=== PATIENT | female | born 1940 | race Caucasian/White ===

== ENCOUNTER → 2017-04-25 | Outpatient (CLI) | payer MEDICARE, OTHER ==
[~2017-04-25] MED LIST: CALTRATE 600600 MG PO; FOSAMAX PO; LEVOTHYROXINE PO; NORCO 325 MG-51 TAB PO; ULTRAM50 MG PO
== END ==
LOC: MC.RAD 13:20
DX: Z12.31 Encounter for screening mammogram for malignant neoplasm of breast (principal); Z90.11 Acquired absence of right breast and nipple

== ENCOUNTER 2017-05-31 09:11 | Inpatient (IN) | payer MEDICARE, OTHER ==
[~2017-05-31] VITALS: Ht 162.6 cm; Wt 99.7 kg
[~2017-05-31 09:11] MED LIST changes: -LEVOTHYROXINE PO; +SYNTHROID0.125 MG/T PO
[2017-10-15] VITALS (12 sets, daily range): BP systolic 101–132; BP diastolic 52–71; PULSE 60–84; TEMP 97.3–98.8
[2017-10-15] MEDS ORDERED: LASIX 20MG TABL20 MG PO (06:23)
[2017-10-16 00:11] VITALS: BP 115/54; PULSE 77; TEMP 98.5
[2017-10-16 04:00] VITALS: BP 118/51; PULSE 56; TEMP 97.7
[2017-10-16 07:14] LABS: HEMATOCRIT 32.5 % (37.0-47.0); HEMOGLOBIN 10.7 g/dl (12.5-16.0)
[2017-10-16 07:43] VITALS: BP 115/56; PULSE 58; TEMP 97.6
[2017-10-16 11:40] VITALS: BP 121/53; PULSE 61; TEMP 97.8
[2017-10-16 15:54] VITALS: BP 122/49; PULSE 64; TEMP 97.9
[2017-10-16 20:04] VITALS: BP 145/57; PULSE 82; TEMP 98.5
[2017-10-17 07:24] VITALS: BP 118/68; PULSE 69; TEMP 97.5
[2017-10-17] MEDS ORDERED: ASPI325T6 PO (07:31)
[2017-10-17] MEDS ORDERED: NORCO 325 MG-7.1 TAB PO (07:31)
[2017-10-17] MEDS ORDERED: ROXICODONE 55 MG/TAB PO (07:32)
[2017-10-17 11:44] VITALS: BP 124/57; PULSE 61; TEMP 97.4
[2017-10-17 16:16] VITALS: BP 138/55; PULSE 65; TEMP 98.2
[2017-10-17 19:49] VITALS: BP 139/58; PULSE 75; TEMP 97.8
[2017-10-18 00:14] VITALS: BP 141/63; PULSE 76; TEMP 97.5
[2017-10-18 04:07] VITALS: BP 147/61; PULSE 66; TEMP 98.3
[2017-10-18 07:45] VITALS: BP 135/63; PULSE 77; TEMP 97.6
[2017-10-18 09:38] VITALS: BP 135/63; PULSE 77; TEMP 97.6
[2017-10-18 11:44] VITALS: BP 126/66; PULSE 67; TEMP 97.6
== END 2017-10-18 12:30 | DRG 470 ==
LOC: JCC 08-12 07:30
PROVIDERS: Orthopaedic Surgery
PROC: 0SRC0J9 Replacement of Right Knee Joint with Synthetic Substitute, Cemented, Open Approach (ICD-10-PCS; principal; 2017-10-15 07:30)
DX: M17.11 Unilateral primary osteoarthritis, right knee (principal); Z85.3 Personal history of malignant neoplasm of breast; Z87.891 Personal history of nicotine dependence
CPT/HCPCS: A4314; A9284; C1713; C1776; J0690; J1100; J1885; J2250; J2405; J2704; J3010; J7120

== ENCOUNTER → 2017-07-11 | Outpatient (CLI) | payer MEDICARE, OTHER ==
[~2017-07-11] MED LIST changes: +LEVOTHYROXINE PO; -SYNTHROID0.125 MG/T PO
[2017-07-11 10:43] LABS: HIV 1/2 Antibodies Non-Reactive; HIV-1p24 Antigen Non-Reactive
== END ==
LOC: COL.LAB 09:08
PROVIDERS: Orthopaedic Surgery
DX: Z01.812 Encounter for preprocedural laboratory examination (principal); M17.11 Unilateral primary osteoarthritis, right knee

== ENCOUNTER 2017-10-08 13:15 | Outpatient (RCR) | payer MEDICARE, OTHER ==
[~2017-10-08 13:15] MED LIST changes: -LEVOTHYROXINE PO; +SYNTHROID0.125 MG/T PO
[2017-10-15] MEDS ORDERED: LASIX 20MG TABL20 MG PO (06:23)
[2017-10-17] MEDS ORDERED: NORCO 325 MG-7.1 TAB PO (07:31)
[2017-10-17] MEDS ORDERED: ASPI325T6 PO (07:31)
[2017-10-17] MEDS ORDERED: ROXICODONE 55 MG/TAB PO (07:32)
== END 2017-11-12 | disposition home or self-care (01) ==
LOC: WSPT
DX: M54.5 Low back pain (principal); M17.11 Unilateral primary osteoarthritis, right knee
CPT/HCPCS: G8978-GP; G8979-GP

== ENCOUNTER → 2017-10-09 | Outpatient (CLI) | payer MEDICARE, OTHER ==
[~2017-10-09] MED LIST changes: +LEVOTHYROXINE PO; -SYNTHROID0.125 MG/T PO
[2017-10-09 15:46] LABS: HIV 1/2 Antibodies Non-Reactive; HIV-1p24 Antigen Non-Reactive
== END ==
LOC: COL.LAB 14:39
PROVIDERS: Orthopaedic Surgery
DX: Z01.812 Encounter for preprocedural laboratory examination (principal); M17.11 Unilateral primary osteoarthritis, right knee

== ENCOUNTER → 2018-05-08 | Outpatient (CLI) | payer MEDICARE, OTHER ==
[~2018-05-08] MED LIST changes: +ASPI325T6 PO; +LASIX 20MG TABL20 MG PO; -LEVOTHYROXINE PO; +NORCO 325 MG-7.1 TAB PO; +ROXICODONE 55 MG/TAB PO; +SYNTHROID0.125 MG/T PO
== END ==
LOC: MC.RAD 11:40
DX: Z12.31 Encounter for screening mammogram for malignant neoplasm of breast (principal); Z90.11 Acquired absence of right breast and nipple

== ENCOUNTER → 2018-12-29 | Outpatient (CLI) | payer MEDICARE, OTHER | LOC: MC.RAD 07:59 | DX: Z12.31 Encounter for screening mammogram for malignant neoplasm of breast (principal); R07.9 Chest pain, unspecified; N64.4 Mastodynia | CPT/HCPCS: G0279 ==

== ENCOUNTER → 2020-01-26 | Outpatient (CLI) | payer MEDICARE, OTHER | LOC: MC.RAD 09:44 | DX: Z12.31 Encounter for screening mammogram for malignant neoplasm of breast (principal); Z90.11 Acquired absence of right breast and nipple; Z85.3 Personal history of malignant neoplasm of breast ==

== ENCOUNTER → 2021-05-30 | Outpatient (CLI) | payer MEDICARE, OTHER | LOC: MC.RAD 10:47 | DX: Z12.31 Encounter for screening mammogram for malignant neoplasm of breast (principal); Z90.11 Acquired absence of right breast and nipple ==

== ENCOUNTER → 2021-11-22 | Outpatient (CLI) | payer MEDICARE, OTHER | LOC: COL.RAD 06:46 | DX: I67.82 Cerebral ischemia (principal); D18.00 Hemangioma unspecified site | CPT/HCPCS: A9575 ==

== ENCOUNTER → 2024-03-16 | Outpatient (CLI) | payer MEDICARE, OTHER | LOC: MC.RAD 13:48 | DX: Z12.31 Encounter for screening mammogram for malignant neoplasm of breast (principal) ==